=== PATIENT | female | born 1960 | race Caucasian/White ===

== ENCOUNTER → 2017-04-17 | Outpatient (CLI) | payer OTHER ==
--- NOTE | 2017-04-17 11:31 | DIAGNOSTIC IMAGING REPORT ---
THYROID ULTRASOUND HISTORY: Thyroid nodule E04.2 Multiple thyroid [id number] COMPARISON: 12/13/2013 FINDINGS: Right lobe: Maximum dimension 4.9 cm. Several makes 2 increased echogenicity nodule is slightly diminished in volume and maximum dimension to 2.0 cm. Left lobe: Uniform in terms of architecture with a maximum dimension of 3 cm. Isthmus: No nodules. IMPRESSION: Right thyroid lobe is multinodular with nodules slightly diminished in prominence from the prior study. Electronically signed by: Levy Turner M.D. 04/17/2017 11:30 AM Dictated Date/Time: 04/17/2017 11:24 AM
[2017-04-17 12:30] LABS: THYROID STIMULATING HORMONE 0.948 uIu/ml (0.300-4.500)
== END | disposition home or self-care (01) ==
LOC: C.ULTR 11:01
PROVIDERS: ATTEND Internal Medicine Endocrinology, Diabetes & Metabolism
DX: E04.2 Nontoxic multinodular goiter (principal); E03.9 Hypothyroidism, unspecified